=== PATIENT | male | born 1945 ===

== ENCOUNTER 2023-02-20 19:37 | Outpatient (REF) | payer MEDICARE, BC, SELFPAY ==
[2023-02-20 21:59] LABS: HCT 39.9 % (40.0-50.0); HGB 14.2 g/dL (13.5-17.5); MCH 32.8 pg (27.0-33.0); MCHC 35.6 % (32.0-36.0); MCV 92 fL (80-95); MPV 10.6 fL (8.0-11.0); Platelet Count 138 10^3/uL (130-400); RBC 4.33 10^6/uL (4.36-5.78); RDW 12.7 % (11.8-14.1); WBC 6.44 10^3/uL (4.4-10.8)
[2023-02-20 22:16] LABS: ALT 29 U/L (16-63); AST 20 U/L (15-37); Albumin 3.9 g/dL (3.4-5.0); Alkaline Phosphatase 61 U/L (46-116); Anion Gap 7.8 mmol/L (3-11); BUN 18 mg/dL (7-18); Bilirubin, Total 0.8 mg/dL (0.2-1.0); CO2 26.2 mmol/L (21.0-32.0); CREATININE 0.9 mg/dL (0.70-1.30); Calcium 8.7 mg/dL (8.5-10.1); Calculated LDL 86 mg/dL (<100); Chloride 103 mmol/L (98-107); Cholesterol 167 mg/dL (<200); Estimated GFR 88.51 (mL/min/1.73m2); Glucose 96 mg/dL (74-106); HDL Cholesterol 69 mg/dL (40-60); Potassium 3.9 mmol/L (3.5-5.1); Sodium 137 mmol/L (136-145); Total Protein 7.2 g/dL (6.4-8.2); Triglyceride 62 mg/dL (<150)
== END 2023-02-20 19:38 | disposition home or self-care (01) ==
LOC: NCHCN 19:37
PROVIDERS: Visit Provider Internal Medicine
DX: Z00.00 Encounter for general adult medical examination without abnormal findings (principal); Z13.6 Encounter for screening for cardiovascular disorders
CPT/HCPCS: 80053; 80061; 85027

== ENCOUNTER 2024-02-25 15:02 | Outpatient (REF) | payer MEDICARE, BC, SELFPAY ==
--- OUTSIDE RECORDS SUMMARY | 2024-02-25 15:04 | XMS_ITS | Encounter Summary ---
Author Organization [facility] Address [address] [place] [address] Care Team Providers Care Electrician Bus Name Role Phone Unavailable Primary Care Provider Unavailabl e Encounter Details Date Type Department Care Team (Late st Contact Info) Description 12/23/2005 Before PRISM Converted Visit (Maple) [facility] - Maple conversion [address] [place] [address] Bart Mahan MD [address] [facility] [address] [place] [phone] Social History Tobacco Use Types Packs/Day Years Used Date Smoking Tobacco: Never Assessed Sex and Gender Information Value Date Recorded Sex Assigned at Not on file Legal Sex Male 17:44 EST Gender Identity Not on file Sexual Orientation Not on file documented as of this encounter Progress Notes * Bart Mahan MD - 02/03/2009 1350 EST DIVISION OF OTOLARYNGOLOGY December 25, 2005 Devonte Mustafa MD [facility] [address] [place] [address] DOS: 12/23/[address] Mustafa: I had the pleasure of seeing your patient John Wiggins in the Otolaryngology Clinic at [facility] today. This is a 60-year-old gentleman who was kicked in the left side of his face by his horseapproximately five days ago. He was seen in the emergency department on Friday where his abrasions were cleaned up and lacerations were sutured. He had a CT scan of this area which shows a nondisplaced orbital floor fracture. Ophthalmology saw the patient and his eyewas examined. There was apparently a corneal abrasion but no other problems in terms of extraocular movements or gross visual acuity. He does not note any new changes in the appearance of the external nasal skeleton. He has no facial numbness or malocclusion. On examination today there is ecchymosis and abrasions around the left eye and cheek. There is no underlying bony step offs to suggest fracture. He has no trismus. Extraocular movements are intact. Vision is grossly intact. The orbital rim is intact. The remainder of his head and neck exam was unremarkable. It is my impression that John Wiggins has a nondisplaced left orbital floor fracture and facial abrasions. His sutures were removed. He requires no surgery for his nondisplaced orbital floor fracture. He should continue to do well as things heal. I reassured him accordingly. He will keep his facial wounds clean and apply bacitracin twice daily for one week. He will contact my office if he develops any changes with his vision orother concerns. Otherwise, I will see him on an as needed basis inthe future. Thank you for the opportunity to see this patient. Sincerely, Signed by Bart Mahan MD 12/25/2005 09:54 Kael Mahan, Kiya Mahan MD Bart Mahan MD - Steven Mahan MD A - mld Job ID: [id number] Document ID: [id number] cc: Devonte Mustafa MD documented in this encounter Plan of Treatment Not on file documented as of this encounter Visit Diagnoses Not on filedocumented in this encounter
--- OUTSIDE RECORDS SUMMARY | 2024-02-25 15:04 | XMS_ITS | Encounter Summary ---
Author Organization [facility] Address [address] [place] [address] Care Team Providers Care Pbx Operator Name Role Phone Unavailable Primary Care Provider Unavailabl e Encounter Details Date Type Department Care Team (Late st Contact Info) Description 12/18/2005 Office Visit [facility] - Maple conversion [address] [place] [address] Blue Lewis MD Social History Tobacco Use Types Packs/Day Years Used Date Smoking Tobacco: Never Assessed Sex and Gender Information Value Date Recorded Sex Assigned at Not on file Legal Sex Male 17:44 EST Gender Identity Not on file Sexual Orientation Not on file documented as of this encounter Progress Notes * Blue Lewis MD - 04/06/2009 0047 EST Department - Physician Summary Registration Date/Time: 12/18/2005 12:42 Time Seen; upon arrival. Arrived- By ambulance. Historian- patient. HISTORY OF PRESENT ILLNESS Chief Complaint- INJURY TO HEAD and INJURY TO FACE. Location of injuries- head and face. The accident occurred today. The patient sustained a blow. Occurred at work. Pt kicked by horse. The patient complains of moderate pain. The patient sustained a blow to the head and had loss of consciousness. No neck pain. REVIEW OF SYSTEMS The patient sustained skin laceration. No seizure, numbness, hearing loss, loss of vision or chest pain. No weakness, difficulty breathing, bladder dysfunction or fever. Has not recently been ill. PAST HISTORY See nurses notes. No history of heart disease, lung disease, renal disease, hypertension or neurological disease. No history of GI disease or diabetes mellitus. Tetanus immunization status is up-to-date. Appendectomy. Knee surgery. Medications: The patient's medications have been reviewed. Allergies: The patient's allergies have been reviewed. SOCIAL HISTORY Nonsmoker. No alcohol use. Is a local resident. ADDITIONAL NOTES The nursing notes have been reviewed with agreement regarding the chief complaint, HPI, PMH and patient medications and allergies. PHYSICAL EXAM Appearance: C-collar in place. Alert. No acute distress. Vital Signs: Have been reviewed and appear to be correct. Head: Left eyebrow area: 3.0 cm laceration. Eyes: Pupils equal, round and reactive to light. EOM intact. Left upper eyelid: severe swelling. Left lower eyelid: severe swelling. Left periorbital area: tenderness, swelling, deformity (consistentwith a periorbital fracture) and 3.0 cm laceration. No entrapment of extraocular muscles or gaze palsy. ENT: No dental injury. Pharynx normal. Neck: Painless ROM. Non-tender. CVS: Normal heart rate and rhythm. Heart sounds normal. Pulses normal. Respiratory: Breath sounds normal. Chest nontender. Abdomen: Abdomen soft and nontender. No organomegaly. Back: No back tenderness. ROM normal. Skin: Skin intact. Normal skin color and turgor. Skin warm and dry. Extremities: Normal inspection. Pelvis stable. Extremities atraumatic. No lower extremity edema. Neuro: Oriented X 3. Mood/affect normal. Speech normal. No motor deficit. Normal gait. No sensory deficit. Reflexes normal. No recall of incident. LABS, X-RAYS, AND EKG EKG: Rate: 91. Normal P waves. Normal LESLEY. Normal QRS complex. Normal axis. Non- specific ST segment/ T wave abnormalities. The study has been independently viewed by me. The study has been interpreted contemporaneously by me. Artifact present. X-Rays: C-spine series negative. Chest X-ray negative. The X-rays were interpreted bythe radiologist and contemporaneously by me and discussed with the radiologist. CT Head: Facial fracture of the nasal bones and left orbit present. No acute changes. No hemorrhage, no intracranial mass, no midline shift, no hydrocephalus and no atrophy. Head CT performed withoutcontrast. The study was interpreted by the radiologist and contemporaneously by me and discussed with the radiologist. CBC: WBC 7.1. Hgb 15. HCT 43. Platelets 175. Chemistries: Na- 138. K- 4.2. Cl- 99. HCO3-22. Glucose - 173. BUN- 18. Cr- 1.3. PROGRESS AND PROCEDURES E.D. Course: Unasyn 3gm IVPB. . Patient counseled in person regarding the patient's test results and diagnosis. Additional history sought from EMS. Old medical records reviewed. Disposition: Admitted. Condition: good. CLINICAL IMPRESSION Closed head injury with amnesia. Nasal fracture, blow-out fracture left eye (orbital fx left). Deep laceration to left eyebrow. Laceration to left eyelid involving lacrimal passages. (Electronically signed by Blue Lewis M.D. 12/19/2005 8:32) Addenda JOHN Nunez VisitID: [id number] Date: 12/18/2005 12/18/2005 12:51 NSURG RETURNED PAGE signed by Alicia Ivy - 12/18/2005 12:51) 12/18/2005 12:52 ERROR NSURG PAGED signed by Alicia Ivy - 12/18/2005 12:52) 12/18/2005 12:56 NSURG RETURNED PAGE signed by Alicia Ivy - 12/18/2005 12:56) Department - Nursing Summary Registration Date/Time: 12/18/2005 12:42 TRIAGE Initial Assessment Triage time 1350. Acuity: LEVEL 3. BP: 120 / 70. HR: 74. RR: 16 regular. Temp: 36.7 C (oral). O2 saturation: 99% room air. Alert. Ruston Coma Scale: 15 - --1258 Carlos Canales R.N.. Medications None. --1258 Carlos Canales R.N.. Allergies No known drug allergies. --1258 Carlos Canales R.N.. History Chief Complaint: INJURY TO HEAD. This occurred today. Mechanism of injury: a blow by being kicked (?kickedby horse left eye). Pain level now: 4/10. The patient has had a moderate headache. The headache has been associated with nausea, vomiting and photophobia. PAST HX: Negative. SOCIAL HX: Nonsmoker. No alcohol use. Historian: patient. Arrived (FACT). 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 taken to [facility] er ct head and neck were negative. [facility] wasagitated and combative but soon became calmand oriented x3. Left orbital fx noted with significant lac. Amnesic to the event). --1258 Carlos Canales R.N.. Interventions ID band on patient. --1258 Carlos Canales R.N.. NURSING PROGRESS NOTES Progress ( NSURG and ED MD's in with pt. ). --1315 Job Carlson.N. BP: 120 / 69. HR: 71. RR: 20 (regular).O2 saturation: 98% room air. --1327 Salvador Trejo R.N. ( Awaiting CT.). --1327 Salvador Trejo R.N. Patient transported to CT by stretcher with tech. --1345 Salvador Trejo R.N. Patient returned from CT by stretcher with tech. --1345 Salvador Trejo R.N. ( Pt. alert and oriented, able to talk in full sentences. at bedside.). The patient is restingquietly. Patient waiting for CT results. --1407 Guille CarlsonN. ( ENT suturing eye. VS-S. Pt. A&O X3.). --1613 Salvador Trejo RSudhirN. ( JELLY FILTER TENDER IV right arm.). --1628 Salvador Trejo R.N. ( Report called, awaiting floor orders.). --1628 Salvador Trejo R.N. UNASYN 3gm in 30 mL IVPB over 30 minutes.IV patency established. IV site checked: no pain, redness,or swelling. IV flushed thoroughly pre- and post- medication administration. Allergic reaction warning given to patient and family. . --1653 Salvador Trejo R.N. HR: 72. RR: 20 (unlabored). O2 saturation: 98% room air. ( ENT suturing still. ). The patient is resting quietly. --1656 Salvador Trejo R.N. ( JELLY FILTER TENDER IV X2, right wrist and left wrist.). --1657 Salvador Trejo R.N. MORPHINE 2mg diluted with 2 mL slow IVP over 2 minutes. Sedative drug warning given to patient and family. . --1739 Salvador Trejo R.N. Patient reports current pain level as 4/10. --1739 Salvador Trejo R.N. ( CALE. in with pt.). --1740 Salvador Trejo R.N. ( PAin meds with relief. Pt. able to ambulate to BR without difficulty, one contact guard.). --genaro Trejo R.N.. DISPOSITION / DISCHARGE Condition at departure: stable. ( Pain tolerable.). Report was given (Shayne RN). Admitted (B6). --1626 Salvador Trejo R.N. Transported via stretcher by [employer]. Departure time: 18:54. --1853 Salvador Trejo R.N.. Carlos Trejo R.N. Locked/Released at 12/18/2005 18:56 by Salvador Trejo R.N. documented in this encounter Plan of Treatment Not on file documented as of this encounter Visit Diagnoses Not on filedocumented in this encounter
--- OUTSIDE RECORDS SUMMARY | 2024-02-25 15:04 | XMS_ITS | Clinical Summary ---
Author Organization [facility] Address [address] [place] [address] Care Team Providers Care Chainsaw Mechanic Name Role Phone Devonte Mustafa MD Primary Care Provider Unav ailable Allergies No known active allergies Medications latanoprost (XALATAN) 0.005 % ophthalmic solution Place 1 Drop into both eyes at bedtime. Active [id number]- Fish Oil (FISH OIL) 1,000 mg (120 mg-180 mg) capsule Take by mouth. Active Active Problems No known active problems Medical History Medical History Date Comments Basal cell carcinoma (BCC) of skin of neck 01/26 left neck, s/p Mohs Social History Tobacco Use Types Packs/Day Years Used Date Smoking Tobacco: Never Smokeless Tobacco: Never Interpersonal Safety Answer Date Record ed Physically Hurt Never 09/12/2019 Verbally Threaten Not on file 09/12/2019 Sex and Gender Information Value Date Recorded Sex Assigned at Not on file Legal Sex Male 17:44 EST Gender Identity Not on file Sexual Orientation Not on file Obstetrics History Last Filed Vital Signs Vital Sign Reading Time Taken Comments Blood Pressure 117/70 01/26/2018 0749 EST Pulse 58 01/26/2018 0749 EST Temperature 35.7 ??C (96.2 ??F) 01/26/2018 0749 EST Respiratory Rate - - Oxygen Saturation - - Inhaled Oxygen Concentration - - Weight - - Height - - Body Mass Index - - Plan of Treatment Health Maintenance Due Date Last Done Comments Hepatitis C Screen 1945 Fall Risk Screening 06/04/2011 RSV Immunization ( o r 60+ Years) (1 - 1-dose 75+ series) 2021 COVID-19 Vaccine ( season) 2023 Insurance [facility] Address: [address] [place] [address] MEDICARE Care Teams Chainsaw Mechanic Relationship Specialty Start Date End Date Devonte Mustafa MD PCP - General 12/26/14
--- OUTSIDE RECORDS SUMMARY | 2024-02-25 15:04 | XMS_ITS | Encounter Summary ---
Author Organization [facility] Address [address] [place] [id number] Care Team Providers Care Network Programmer Name Role Phone Devonte Mustafa MD Primary Care Provider Unav ailable Reason for Visit * Reason Comments Basal Cell Carcinoma Left neck Encounter Details Date Type Department Care Team (Late st Contact Info) Description 01/26/2018 8:00 EST Office Visit [facility] Dermatology 5th [address] [id number] Yon Gallego MD [address] [facility], Level [address] [place] [id number] Basal cell carcinoma of neck (Primary Dx) Discharge Disposition: Auto Discharge Social History Tobacco Use Types Packs/Day Years Used Date Smoking Tobacco: Never Smokeless Tobacco: Never Sex and Gender Information Value Date Recorded Sex Assigned at Not on file Legal Sex Male 17:44 EST Gender Identity Not on file Sexual Orientation Not on file documented as of this encounter Last Filed Vital Signs Vital Sign Reading Time Taken Comments Blood Pressure 117/70 01/26/2018 0749 EST Pulse 58 01/26/2018 0749 EST Temperature 35.7 ??C (96.2 ??F) 01/26/2018 0749 EST Respiratory Rate - - Oxygen Saturation - - Inhaled Oxygen Concentration - - Weight - - Height - - Body Mass Index - - documented in this encounter Discharge Diagnoses Diagnosis C44.41 Basal cell carcinoma of skin of scalp and neck-C44.41[ICD-10-CM] documented in this encounter Patient Instructions * Patient Instructions* Yon Gallego MD - 01/26/2018 8:00 EST WOUND CARE INSTRUCTIONS FOR SKIN SURGERY The BANDAGE should remain in place for 24 hours. You may shower or bathe after 24 hours; remove thebandage and replace it after the shower (see wound care section below for instructions on how to dothis). DISCOMFORT: Expect some discomfort. Tylenol, taken as directed by the dragger, will help relieve pain. If Tylenol does not provide sufficient relief, you may also take Ibuprofen alternating every four hours with the Tylenol. If the pain is severe and not relieved by the above measures, please c all the office. BLEEDING: You may notice some blood on the edges of the dressing the first day - this is NORMAL. Ifthe bleeding soaks through the dressing, remove the dressing, and apply firm, steady pressure with a moist clean wash cloth for fifteen minutes. If the bleeding stops, redress the wound, if not, callour office at . ACTIVITY: Relax and limit your physical activity for the first 48 hours after surgery. Also, if thesurgery was on the face or scalp, keep your head elevated. Your provider may ask you to limit activity for a longer period of time. APPEARANCE: There may be swelling and bruising around the wound, especially near the eyes. Some redness is normal, but the wound should not be red, hot and tender. If the wound becomes increasingly inflamed, warm, or drains pus, please call our office. WOUND CARE: ?? Wash hands with soap and water before changing the dressing. ?? Change the dressing daily and when it becomes wet. ?? Clean the wound with mild soap and warm water. ?? You may gently loosen any crusts with a cotton swab. ?? The wound may be slightly tender and may bleed a small amount. A small amount of discharge is normal. ?? Apply a thin layer of sterile petroleum jelly over the wound. ?? Cover with Telfa or similar non-stick dressing or bandage. ?? Tape in place with Hypafix or paper tape. ?? It is important to keep the wound covered for 7 days at which point the dressing may be removed and does not need to be reapplied. ?? If there are areas that are not fully healed after 7 days then the dressing should remain in place longer until the skin has healed completely. ?? If your sutures require removal, you will receive specific instructions regarding when and whereto have them removed. Dissolvable sutures generally fall out in 7 to 14 days. If there are suture remnants still present after 7 days you may pull them out with tweezers. CONTACT OUR OFFICE ( or ) IF YOU EXPERIENCE: ?? Increasing redness ?? Wound is warm or hot to touch ?? Increasing pain ?? Drainage with a foul odor ?? Rapid swelling of the wound ?? Fever or chills documented in this encounter Discharge Disposition Disposition Code Departure Means Destination Auto Discharge documented in this encounter Progress Notes * Mia Boyce - 01/26/2018 0800 EST Patient Education Topic: wound care Method: Handout and Verbal Taught to: Patient Barriers: None Outcomes: independent Signature: Mia Boyce Food Preparation Worker, Dermatology 7:49 01/26/2018 * Yon Gallego MD - 01/26/2018 0800 EST MOHS OPERATIVE REPORT Patient Name: John Wiggins Date of Service: January 26, 2018 Surgeon: Yon Gallego MD Technical Support Assistant: Mini Egan PA-C Case #: [id number] AUC Score: 9 Preoperative Diagnosis: Infiltrative basal cell carcinoma Preoperative Procedure: Mohs micrographic surgery Location of Lesion: left postauricular neck Preoperative Lesion Size: 1.7 cm x 1.1 cm Preoperative Procedure: Mohs microscopically-controlled fresh tissue excision Indications: The patient presents with a infiltrative basal cell carcinoma. Because of the histologic and clinical nature of the lesion, as well as its location, the need to achieve the highest cure rate while providing maximum tissue preservation warranted tumor extirpation via microscopically-controlled excision using the Mohs fresh tissue technique. Alternate therapeutic options were discussedon several occasions prior to surgery. After informed consent was obtained and appropriate instruction was provided, the patient underwent tumor extirpation by the Mohs fresh tissue technique as follows: PROCEDURE - INITIAL STAGE: Patient position: supine Anesthesia: 1% lidocaine with epinephrine 1:100,000 local infiltration Prep: Povodine Iodine The patient was brought to the operative suite. The lesion was identified and was prepped in a sterile fashion. The area was infiltrated with lidocaine/epinephrine to achieve complete anesthesia and to augment hemostasis. An initial beveled excision was performed to the fascia with a scalpel blade and tissue scissors as indicated. A hash was created in the specimen and within the adjacent epidermis for marking purposes. The Mohs specimen was excised in a sharp manner, and carefully placed in proper orientation on the surgical tray. Hemostasis of the operative wound was obtained with careful spot electrocoagulation. A sterile non-adherent dressing was applied to the operative wound. The Mohs tissue specimen was carefully transferred to the lab where the tissue was divided, and color inked for orientation by me. These specimens were mapped and then handed personally to the dye penetrant testing technician for frozen sectioning. The tissue was embedded so that the deep and surface margins lay in the same plane, and sections were made through this plane. Once the slide preparation was complete I personally performed histologic evaluation and interpretation of all sections. A summary of my findingsmay be found below. Stage 1 findings: Wound Depth fascia Sections Created 2 Number of Sections Containing Tumor 1 (SUPERFICIAL BASAL CELL CARCINOMA -- Arising from the epidermis and superficial hair follicles are small, superficial, multicentric buds of basaloid keratinocytes with peripheral palisading and cleft artifact.) ADDITIONAL STAGES: The operative site was reidentified and anesthesia was supplemented with further lidocaine/epinephrine as needed. Further beveled incisions of lateral and deep margins were performed with a number 15scalpel blade at all sites where tumor was mapped from the previous stage. Hashes were created in the specimen and within the adjacent epidermis for marking purposes as indicated. The specimens were excised in a sharp manner, and carefully placed in proper orientation on the surgical tray. Hemostasis of the operative wound was obtained with careful spot electrocoagulation. A sterile non-adherent dressing was applied to the operative wound. Stage 2 findings: Wound Depth fascia Sections Created 1 Number of Sections Containing Tumor 0 With the patient clear of microscopic tumor, surgery was considered complete. The wound was repaired with an INTERMEDIATE LINEAR closure as detailed in the separate linear repair procedure note below. Postoperative Wound Size: 2.3 cm x 1.5 cm Final Diagnosis: Infiltrative basal cell carcinoma Final Procedure: Mohs micrographic surgery Blood Loss: Minimal Operative Time: 60 minutes Complications: None Note: None Yon Gallego MD 01/26/2018 11:17 INTERMEDIATE REPAIR PATIENT INFORMATION: John Job Wiggins SURGEON: Yon Gallego MD PERSONNEL ASSOCIATE: Mini Egan PA-C PREOPERATIVE DIAGNOSIS: Defect following microscopically controlled excision of Infiltrative basal cell carcinoma PREOPERATIVE PROCEDURE: Intermediate Linear Closure LOCATION of WOUND: left neck WOUND DIMENSIONS: 2.3 cm x 1.5 cm INDICATIONS: The patient presents with an operative wound following tumor removal. After careful consideration and discussion of all repair options, it was determined that, given the location and nature of the defect, an intermediate linear layered closure offered the best chance for preservation of normal anatomic and functional relationships. Alternate options were discussed and the patient was encouraged to ask questions, which, I believe, were answered appropriately. Informed consent was obtained in writing. After informed consent was obtained and appropriate instruction was provided, the patient underwent operative repair as follows. PROCEDURE: Patient position: supine Anesthesia: 1% lidocaine with epinephrine 1:100,000 local infiltration Prep: Povodine Iodine The Mohs operative defect was identified, and the area was infiltrated with lidocaine/epinephrine to achieve complete anesthesia and to augment hemostasis. The area was prepped in the usual sterile and was draped with sterile drapes. A linear closure was designed with care to place the operative repair within functional and cosmetic lines to minimize the postoperative distortion of normal tissues. The wound edges were prepared using a # 15 scalpel blade to precisely delineate the operative repair and were then undermined with combined blunt and, as needed, sharp dissection taking great care to avoid functionally important vessels and nerves. Undermining was carried out at the level of the superficial fascia Hemostasis of the operative wound was obtained with careful spot electrocoagulation, and ligature as indicated. The wound edges were then approximated using 5.0 Monocryl (poliglecaprone 25) buried interrupted sutures at the level of the subcutis and dermis. The epidermis was then approximated using 6.0 Fast absorbing plain gut. The final wound length was 6.1 cm. FINAL DIAGNOSIS: Defect following microscopically controlled excision FINAL PROCEDURE: Intermediate linear closure BLOOD LOSS: minimal OPERATIVE TIME: 30 minutes COMPLICATIONS: None NOTE: None Yon Gallego MD 01/26/2018 11:21 * Yon Gallego MD - 01/26/2018 0800 EST Images from the original note were not included. MOHS SURGERY POST-OP SUMMARY John Wiggins is a 72 y.o. year old male who underwent Mohs surgery today 01/26/2018. The following is a summary of the operative findings: Lesion 1 Infiltrative basal cell carcinoma Location left neck Size Preop (cm) 1.7 cm x 1.1 cm Size Postop (cm) 2.3 cm x 1.5 cm Stages 2 Depth of Excision fascia Repair intermediate linear repair Mr. Wiggins was discharged from the operative suite in good condition. He was carefully instructed in postoperative wound care both verbally and in writing. All sutures used were absorbable, so the patient does not need to return for suture removal. Return for follow up as needed. Note: None JESSICA Giraldo MD 01/26/2018 11:16 documented in this encounter Plan of Treatment Not on file documented as of this encounter Procedures Procedure Name Priority Date/Time Associated Diagnosis Comments PROCEDURE REPORTS - SCANNED 01/30/2018 13:28 EST documented in this encounter Results * PROCEDURE REPORTS - SCANNED (01/30/2018 13:28 EST) 01/30/2018 13:2 8 EST us Scan 2 Business Account Specialist PROCEDURE/MINOR SURGICAL OR DERABLES Final Result documented in this encounter Visit Diagnoses Diagnosis Basal cell carcinoma of neck- Primary Basal cell carcinoma of scalp and skin of neck documented in this encounter Care Teams Network Programmer Relationship Specialty Start Date End Date Devonte Mustafa MD PCP - General 12/26/14 documented as of this encounter
--- OUTSIDE RECORDS SUMMARY | 2024-02-25 15:04 | XMS_ITS | Encounter Summary ---
Author Organization [facility] Address [address] [place] [address] Care Team Providers Care Moth Exterminator Name Role Phone Devonte Mustafa MD Primary Care Provider Unav ailable Encounter Details Date Type Department Care Team (Late st Contact Info) Description 06/18/2021 Lab Requisition [facility] Pathology & Laboratory Medicine - [address] [address] Jim Ng PA [address] [place] [address], [address] [place] [address] Basal cell carcinoma of skin of right upper limb, including shoulder Social History Tobacco Use Types Packs/Day Years [...] on file documented as of this encounter Plan of Treatment Not on file documented as of this encounter Procedures Procedure Name Priority Date/Time Associated Diagnosis Comments SURGICAL PATHOLOGY Today 06/18/2021 10 :09 EDT Basal cell carcinoma of skin of right upper limb, including shoulder documented in this encounter Results * SURGICAL PATHOLOGY (06/18/2021 10:09 EDT) Note to Patient The following pathology results have been interpreted by your pathologist and may be available to you before your health provider has had the opportunity to review them. Please allow time for your provider to receive these results and explore management options, if applicable. 06/20/2021 11:01 [facility] Final Diagnosis A. SKIN OF SHOULDER, RIGHT POSTERIOR, EXCISION: - Basal cell carcinoma, nodular and infiltrative type. - Margins negative for basal cell carcinoma. - Basal cell carcinoma present approximately 1.5 mm from peripheral margin. - Epidermal reparative change and dermal scar, consistent with biopsy site. 06/20/2021 11:01 [facility] Attestation By the signature below, the attending physician certifies that they have 1) personally conducted a gross and/or microscopic examination of the described specimen(s), and/or personally interpreted the results of laboratory testing of the described specimen(s), and 2) personally rendered or confirmed the above diagnosis. 06/20/2021 11:01 [facility] at 1101 Microscopic Description Emanating from the epidermis and extending into the dermis are irregularly shaped islands and cords of atypical basal cells. Many of the islands are small and angulate. The basal cells have scant cytoplasm and round dark nuclei. Mitotic figures and apoptotic bodies are evident. Some nuclei at the periphery of some of the larger islands have a palisaded arrangement. There is fibroplasia and myxoid change of the stroma with cleft formation between some of the islands and stroma. 06/20/2021 11:01 [facility] Clinical History [place] scar S/P biopsy with residual; DDx: Nodular basal cell carcinoma; Notes: Please check margins; [id number]; clinical diagnosis code: C44.612 06/20/2021 11:01 [facility] Gross Description A. Received in formalin labelled with proper patient identification (initials H, E) and right posterior shoulder is an unoriented ellipse excision of pale carbajal-white wrinkled skin (4.1 x 1.5 cm and is excised to a depth of 0.7 cm). There is a central white flaky focally carbajal crusted scab (0.8 x 0.6 x 0.2 cm). The scab is dislodged upon manipulation. The specimen is received a marking ink covering the edges of the specimen and the cutaneous surface surrounding the scab. The margins are inked blue. The specimen is serially sectioned and entirely submitted as follows: BLOCK ARMENTA A1- two tips, reverse en face A2-A6- central sections A7- the dislodged scab, trisected Carlyle Garrett 06/19/2021 10:57 06/20/2021 11:01 EDT [facility] Performing Lab [facility] 06/20/2021 11:01 EDT [facility] Scanned Images 06/20/2021 11:01 EDT [facility] Tissue TISSUE SPECIMEN FROM SKIN / Unknown 06/18/2021 10:09 EDT 06/18/2021 16:27 EDT us Jim LOPEZ PATHOLOGY ORDERABLES Final Res ult [facility] [address] [place] [address] documented in this encounter Visit Diagnoses Diagnosis Basal cell carcinoma of skin of right upper limb, including shoulder Basal cell carcinoma of skin of upper limb, including shoulder documented in this encounter Care Teams Moth Exterminator Relationship Specialty Start Date End Date Devonte Mustafa MD PCP - General 12/26/14 documented as of this encounter
--- OUTSIDE RECORDS SUMMARY | 2024-02-25 15:04 | XMS_ITS | Encounter Summary ---
Author Organization [facility] Address [address] [place] [address] Care Team Providers Care Media Theorist And Author Of Name Role Phone Devonte Mustafa MD Primary Care Provider Unav ailable Encounter Details Date Type Department Care Team (Latest Contact Info) Description 12/25/2017 14:51 EST - 12/25/2017 23:59 EST Hospital Encounter [address] [address] Arun Mejias, PAYuryC [address] [place] [address] Discharge Disposition: Home or Self Care Social History Tobacco Use Types Packs/Day Years Used Date Smoking Tobacco: Never Assessed Sex and Gender Information Value Date Recorded Sex Assigned at Not on file Legal Sex Male 17:44 EST Gender Identity Not on file Sexual Orientation Not on file documented as of this encounter Discharge Diagnoses Diagnosis D48.5 Neoplasm of uncertain behavior of skin-D48.5[ICD-10-CM] documented in this encounter Discharge Disposition Disposition Code Departure Means Destination Home or Self Care documented in this encounter Plan of Treatment Not on file documented as of this encounter Visit Diagnoses Not on filedocumented in this encounter Care Teams Media Theorist And Author Of Relationship Specialty Start Date End Date Devonte Mustafa MD PCP - General 12/26/14 documented as of this encounter
--- OUTSIDE RECORDS SUMMARY | 2024-02-25 15:04 | XMS_ITS | Referral Summary ---
Author Organization [facility] Address [address] [place] [address] Care Team Providers Care Stone Rigger Name Role Phone Devonte Mustafa MD Primary Care Provider Unav ailable Allergies No known active allergies Medications latanoprost (XALATAN) 0.005 % ophthalmic solution Place 1 Drop into both eyes at bedtime. Active [id number]- Fish Oil (FISH OIL) 1,000 mg (120 mg-180 mg) capsule Take by mouth. Active Active Problems No known active problems Social History Tobacco Use Types Packs/Day Years Used Date Smoking Tobacco: Never Smokeless Tobacco: Never Interpersonal Safety Answer Date Record ed Physically Hurt Never 09/12/2019 Verbally Threaten Not on file 09/12/2019 Sex and Gender Information Value Date Recorded Sex Assigned at Not on file Legal Sex Male 17:44 EST Gender Identity Not on file Sexual Orientation Not on file Last Filed Vital Signs Vital Sign Reading Time Taken Comments Blood Pressure 117/70 01/26/2018 0749 EST Pulse 58 01/26/2018 0749 EST Temperature 35.7 ??C (96.2 ??F) 01/26/2018 0749 EST Respiratory Rate - - Oxygen Saturation - - Inhaled Oxygen Concentration - - Weight - - Height - - Body Mass Index - - Plan of Treatment Not on file Insurance [employer] [place] MEDICARE Care Teams Stone Rigger Relationship Specialty Start Date End Date Devonte Mustafa MD PCP - General 12/26/14
--- OUTSIDE RECORDS SUMMARY | 2024-02-25 15:04 | XMS_ITS | Encounter Summary ---
Author Organization [facility] Address [address] [place] [address] Care Team Providers Care Yolk Spray Drier Name Role Phone Unavailable Primary Care Provider Unavailabl e Encounter Details Date Type Department Care Team (Latest Contact Info) Description 12/18/2005 19:05 EST - 12/19/2005 11:59 EST Hospital Encounter [facility] General Surgery Unit [address], [place] [id number] Flo Kauffman MD PhD Blue Lewis MD Discharge Disposition: Home or Self Care Social History Tobacco Use Types Packs/Day Years Used Date Smoking Tobacco: Never Assessed Sex and Gender Information Value Date Recorded Sex Assigned at Not on file Legal Sex Male 17:44 EST Gender Identity Not on file Sexual Orientation Not on file documented as of this encounter Discharge Disposition Disposition Code Departure Means Destination Home or Self Care documented in this encounter Progress Notes * Alejandro Raman - 12/19/2005 0000 EST INPATIENT PROGRESS NOTE PT LOC: B006 Service Date: 12/19/2005 CHIEF COMPLAINT: Multiple trauma. SUBJECTIVE: This is a 60-year-old male who was kicked in the face by a horse. By report, the patient was amnestic to the event and subsequently presented to an outside emergency room for evaluation. The patient was found to have a complex supraorbital facial laceration as well as a left orbital fracture. In addition, the patient was found to have a traumatic brain injury. The patient was transferred to [facility]for further evaluation where our physicians concurred with this diagnosis. The patient was admitted to the hospital for observation. At this point in time, the patient has no complaints. He states his vision in the left eye has gotten markedly better. He remains amnestic to the event but denies a history of headaches or vomiting. The patient was nauseous this morning, though this was after taking a Percocet. OBJECTIVE: On physical exam, he an obviously traumatized male in no acute distress. His T-max is 37.3. T-current 36.0. Heart rate 60. Blood pressure 94/60. Respiratory rate is 18. Saturation 97% on room air. On physical exam, his head is normocephalic. Examination of the patientleft orbit shows marked ecchymosis around his orbit, although his extraocular movements appear to be grossly intact. Hisvision appears to be 20/20 in both eyes. Examination of the patientsupraorbital laceration shows the suture line to be clean, dry and intact. The patients neck is supple. His trachea is midline. His chest is clear to auscultation bilaterally. His heart has a regular rate and rhythm. His abdomen is soft, nontender and nondistended. Neurologically, his GCS is 15. Cranial nerves II-XII are grossly intact. ASSESSMENT AND PLAN: This is a 60male status post blunt trauma to his left orbit. Plans for this patient include: 1. We will repeat the patients head CT today. 2. We will request a HIMS screening today. 3. Should the patient be able totolerate lunch and his CAT scan and HIMS screening are within normal limits, we will plan to discharge him from [facility] today with appropriate followupwith neurosurgery and the otolaryngology team. Signed by Alejnadro Raman MD 12/19/2005 15:47 Mary Raman [phone] Raman MD Alejandro Raman MD [phone] - Steven Raman MD A - mt Job ID: [id number] Document ID: [id number] cc: documented in this encounter Plan of Treatment Not on file documented as of this encounter Procedures Procedure Name Priority Date/Time Associated Diagnosis Comments CT HEAD WO CONTRAST 12/19/2005 1 0:54 EST PTT Routine 12/19/2005 1:28 EST PROTIME Routine 12/19/2005 1:28 EST COMPLETE BLOOD COUNT AND DIFFERENTIAL Routine 12/19/2005 1:28 EST BUN Routine 12/19/2005 1:28 EST PHOSPHORUS Routine 12/19/2005 1:28 EST MAGNESIUM Routine 12/19/2005 1:28 EST CREATININE Routine 12/19/2005 1:28 EST CALCIUM Routine 12/19/2005 1:28 EST ELECTROLYTES Routine 12/19/2005 1:28 EST URINE CHEMICAL (DIP) & SEDIMENT (MICRO) WITHOUT REFLEX TO CULTURE Routine 12/19/2005 0:[address] FACIAL BONES WO CONTRAST 12/18/2005 13:43 EST documented in this encounter Results * CT HEAD WO CONTRAST (12/19/2005 10:54 EST) Anatomical Region Laterality Modality Other 12/19/2005 10:5 4 EST Narrative 08/20/2008 3:04 EDT HD #2 POST BLOW TO HEAD BY HORSE. TATYANA F/U CT TO EVAL FOR INTRACRANIAL PATHOLOGY. CT OF THE HEAD, 12/19/2005 HISTORY: Hospital Day #2 post-blow to head by horse. ??Follow-up to evaluate for intracranial pathology. TECHNIQUE: Transverse non-contrast CT scans of the brain were performed from the foramen magnum to the vertex. COMPARISONS: CT of the facial bones, 12/18/2005. FINDINGS: fractures of the nasal bones are redemonstrated. ??Left orbital floor fracture with slight inferior displacement is also redemonstrated. ??There is near-complete opacification of the right maxillary sinus. ??Mucosal thickening is present in the left maxillary sinus. ??There is mucosal thickening present in the ethmoid air cells as well. ??The ventricles and extraaxial CSF spaces are age-appropriate. ??No mass effect or midline shift is seen. ??There is no intracranial hemorrhage. IMPRESSION: 1. ?Comminuted nasal bone fracture and blow-out fracture of the left orbital floor, unchanged from yesterday's study. 2. ?Persistent opacification of the right maxillary sinus. 3. ?Mucosal thickening in the left maxillary sinus and ethmoid air cells. 4. ?No intracranial abnormality identified. D: ??12/19/2005 T: ??12/20/2005 /[facility]. I have personally reviewed the images and the above interpretation and agree with the findings. Procedure Note Josette Huang MD / Lobo Valdez MD - 08/20/2008 HD #2 POST BLOW TO HEAD BY HORSE. TATYANA F/U CT TO EVAL FOR INTRACRANIAL PATHOLOGY. CT OF THE HEAD, 12/19/2005 HISTORY: Hospital Day #2 post-blow to head by horse. Follow-up to evaluate for intracranial pathology. TECHNIQUE: Transverse non-contrast CT scans of the brain were performed from the foramen magnum to the vertex. COMPARISONS: CT of the facial bones, 12/18/2005. FINDINGS: fractures of the nasal bones are redemonstrated. Left orbital floor fracture with slight inferior displacement is also redemonstrated. There is near-complete opacification of the right maxillary sinus. Mucosal thickening is present in the left maxillary sinus. There is mucosal thickening present in the ethmoid air cells as well. The ventricles and extraaxial CSF spaces are age-appropriate. No mass effect or midline shift is seen. There is no intracranial hemorrhage. IMPRESSION: 1. Comminuted nasal bone fracture and blow-out fracture of the left orbital floor, unchanged from yesterday's study. 2. Persistent opacification of the right maxillary sinus. 3. Mucosal thickening in the left maxillary sinus and ethmoid air cells. 4. No intracranial abnormality identified. /[facility]. I have personally reviewed the images and the above interpretation and agree with the findings. us Flo Kauffman MD PhD IMG CT ORDERABLES Final Result * PTT (12/19/2005 1:28 EST) PTT 27 20 - 35 secs [facility] Comment: PLEASE NOTE CHANGE IN HEPARIN THERAPEUTIC RANGE EFFECTIVE 12/11/05 Therapeutic Heparin range: ?? 60-100 seconds 12/19/2005 1:28 EST 12/19/2005 1:29 EST Flo Kauffman MD PhD HEMATOLOGY & PF4 O RDERABLES Final Result [facility] [address] [place] [address] * (ABNORMAL) PROTIME (12/19/2005 1:28 EST) Pro Time 15.4(H) 12.0 - 15.0 secs [facility] I.N.R. 1.2(H) 0.9 - 1.1 Ratio [facility] Comment: Moderate Intensity Coumadin INR = 2.0-3.0 Adjustments in anticoagulant therapy dose should be based upon the INR and NOT the Pro Time. 12/19/2005 1:28 EST 12/19/2005 1:29 EST Flo Kauffman MD PhD HEMATOLOGY & PF4 O RDERABLES Final Result [facility] [address] [place] [address] * PHOSPHORUS (12/19/2005 1:28 EST) Phosphorus 3.4 2.5 - 4.5 mg/dl [facility] 12/19/2005 1:28 EST 12/19/2005 1:29 EST us Flo Kauffman MD PhD CHEMISTRY & BLOOD GAS ORDERABLES Final Result Performing Organization Address [facility] de Phone Number [facility] [address] [place] [address] * MAGNESIUM (12/19/2005 1:28 EST) Magnesium 2.1 1.7 - 2.8 mg/dl [facility] 12/19/2005 1:28 EST 12/19/2005 1:29 EST Flo Kauffman MD PhD CHEMISTRY & BLOOD GAS ORDERABLES Final Result Performing Organization Address [facility] de Phone Number [facility] [address] [place] [address] * ELECTROLYTES (12/19/2005 1:28 EST) Sodium 136 136 - 145 mEq/L [facility] Potassium 3.5 3.5 - 5.0 mEq/L [facility] Chloride 100 96 - 110 mEq/L [facility] CO2 30 24 - 32 mEq/L [facility] 12/19/2005 1:28 EST 12/19/2005 1:29 EST Flo Kauffman MD PhD CHEMISTRY & BLOOD GAS ORDERABLES Final Result Performing Organization Address City/[facility] Co de Phone Number [facility] [address] [place] [address] * CREATININE (12/19/2005 1:28 EST) Pathologist [facility] Creatinine 0.97 0.7 - 1.5 mg/dl [facility] GFR, Calculated >60 ml/min/1.7 3m2 [facility] 12/19/2005 1:28 EST 12/19/2005 1:29 EST Flo Kauffman MD PhD CHEMISTRY & BLOOD GAS ORDERABLES Final Result [facility] [address] [place] [address] * (ABNORMAL) HEMAGRAM AND DIFFERENTIAL (12/19/2005 1:28 EST) Pathologist [facility] WBC 10.24 4.0 - 10.4 K/cmm [facility] RBC 3.84(L) 4.36 - 5.78 M/cmm [facility] Hemoglobin 12.7(L) 13.8 - 17.3 gm/dl [facility] HCT 36.2(L) 39.5 - 50.2 % [facility] MCV 94 81 - 95 fl [facility] MCH 33.0 27.6 - 33.0 pg [facility] MCHC 35.0 32.8 - 36.4 gm/dl [facility] PLT 110(L) 141 - 320 K/cmm [facility] RDW-CV 13.9 11.8 - 14.1 % [facility] % Neutrophils 87.4(H) 45.5 - 79.7 % [facility] % Lymphocytes 8.8(L) 15.0 - 46.8 % [facility] % Monocytes 3.1 1.8 - 12.0 % [facility] % Eosinophils 0.4(L) 0.6 - 6.9 % [facility] % Basophils 0.3 0.2 - 1.4 % [facility] ABS Neutrophils 8.95(H) 2.20 - 8.85 K/cmm [facility] ABS Lymphs 0.90(L) 1.09 - 3.30 K/cmm [facility] ABS Monocytes 0.32 0.1 - 0.8 K/cmm [facility] ABS Eosinophils 0.04 0.03 - 0.61 K/cmm [facility] ABS Basophils 0.03 0.01 - 0.11 K/cmm [facility] Type of Diff: Automated [facility] 12/19/2005 1:28 EST 12/19/2005 1:29 EST Flo Kauffman MD PhD PACKAGES & DNA PRO BE ORDERABLES Final Result Performing Organization Address City/[facility] Co de Phone Number [facility] [address] [place] [address] * CALCIUM (12/19/2005 1:28 EST) Calcium 8.7 8.5 - 10.5 mg/dl [facility] Calculated Calcium 9.8 8.5 - 10.5 mg/dl [facility] 12/19/2005 1:28 EST 12/19/2005 1:29 EST Flo Kauffman MD PhD CHEMISTRY & BLOOD GAS ORDERABLES Final Result Performing Organization Address [facility] de Phone Number [facility] [address] [place] [address] * BUN (12/19/2005 1:28 EST) BUN 13 10 - 26 mg/dl [facility] 12/19/2005 1:28 EST 12/19/2005 1:29 EST Flo Kauffman MD PhD CHEMISTRY & BLOOD GAS ORDERABLES Final Result Performing Organization Address [facility] de Phone Number [facility] [address] [place] [address] * UA WITH MICROSCOPIC (12/19/2005 0:40 EST) Color, UA Yellow [facility] Clarity, UA Clear [facility] Glucose, UA Norm NORM [facility] Bilirubin, UA Neg NEG [facility] Ketones, UA Neg NEG [facility] Specific Fertile, Urine 1.020 1.005 - 1.02 [facility] Blood, UA Neg NEG [facility] pH, UA 5.5 5.0 - 9.0 [facility] Protein, UA Neg NEG [facility] Urobilinogen, UA Norm NORM mg/dL [facility] Nitrite, UA Neg NEG [facility] Leuk Esterase Neg NEG [facility] WBC, UA 1 to 5 0 - 5 /HPF [facility] RBC, UA None seen 0 - 5 /HPF [facility] Squam Epithel, UA None seen NS /HPF [facility] Renal Epithel, UA None seen NS /HPF [facility] Bacteria, UA None seen NS /HPF [facility] Crystals, UA None seen /HPF [facility] Hyaline Casts, UA None seen Rare Hyaline /LPF [facility] UA Comment Microscopic results are unreliable on urines unrefrig >2hrs or refrig >8hrs. [facility] Mucus, UA Present [facility] 12/19/2005 0:40 EST 12/19/2005 7:43 EST Flo Kauffman MD PhD URINALYSIS ORDERAB LES Final Result Performing Organization Address City/State/[facility] Co de Phone Number [facility] [address] [place] [address] * CT FACIAL BONES WO CONTRAST (12/18/2005 13:43 EST) Anatomical Region Laterality Modality Other 12/18/2005 13:4 3 EST Narrative 08/20/2008 3:03 EDT HX HORSE VS FACE R/O FRACTURES CT OF THE FACIAL BONES 12/18/05 1338 IMPRESSION: 1. Comminuted fracture of the right and left nasal bones with deformity of the nose. 2. Blow-out fracture of the floor of the left orbit. 3. Complete opacification of the right maxillary sinus. 4. Mucosal thickening in the left maxillary sinus. CLINICAL HISTORY: Horse versus face. ??Evaluate for fractures. TECHNIQUE: Transverse non-contrast images of the facial bones were performed from the mandible through the frontal sinus with coronal and sagittal oblique reformations. FINDINGS: Comminuted fractures are seen in the right and left nasal bones. The right maxillary sinus is completely opacified. ??Mucosal thickening is identified in the left maxillary sinus. ??Fracture is seen through the floor of the left orbit. ??The fracture is displaced slightly inferiorly. ??The rectus muscles remain within the orbit although the inferior rectus muscle is slightly displaced inferiorly. No other abnormalities are noted. D: ??12/18/05 T: ??12/18/05 /[facility] Procedure Note Laura Orta MD - 08/20/2008 HX HORSE VS FACE R/O FRACTURES CT OF THE FACIAL BONES 12/18/05 1338 IMPRESSION: 1. Comminuted fracture of the right and left nasal bones with deformity of the nose. 2. Blow-out fracture of the floor of the left orbit. 3. Complete opacification of the right maxillary sinus. 4. Mucosal thickening in the left maxillary sinus. CLINICAL HISTORY: Horse versus face. Evaluate for fractures. TECHNIQUE: Transverse non-contrast images of the facial bones were performed from the mandible through the frontal sinus with coronal and sagittal oblique reformations. FINDINGS: Comminuted fractures are seen in the right and left nasal bones. The right maxillary sinus is completely opacified. Mucosal thickening is identified in the left maxillary sinus. Fracture is seen through the floor of the left orbit. The fracture is displaced slightly inferiorly. The rectus muscles remain within the orbit although the inferior rectus muscle is slightly displaced inferiorly. No other abnormalities are noted. jv Flo Kauffman MD PhD IMG CT ORDERABLES Final Result documented in this encounter Visit Diagnoses Not on filedocumented in this encounter
--- OUTSIDE RECORDS SUMMARY | 2024-02-25 15:04 | XMS_ITS | Encounter Summary ---
Author Organization [facility] Address [address] [place] [address] Care Team Providers Care District Plant Superintendent Name Role Phone Unavailable Primary Care Provider Unavailabl e Encounter Details Date Type Department Care Team (Late st Contact Info) Description 12/23/2005 13:15 EST [place] [facility] [address] [place] [address] Bart Mahan MD [address] [place] [address], [address] [place] [id number] Social History Tobacco Use Types Packs/Day Years [...]
--- OUTSIDE RECORDS SUMMARY | 2024-02-25 15:04 | XMS_ITS | Encounter Summary ---
Author Organization [facility] Address [address] [place] [address] Care Team Providers Care Bun Icer Name Role Phone Devonte Mustafa MD Primary Care Provider Unav ailable Encounter Details Date Type Department Care Team (Late st Contact Info) Description 05/16/2022 Lab Requisition [facility] Pathology & Laboratory Medicine - [address] [address] Jim Ng PA [address] [place] [address], [address] [place] [address] Neoplasm of uncertain behavior of skin Social History Tobacco Use Types Packs/Day Years [...] Date/Time Associated Diagnosis Comments SURGICAL PATHOLOGY Today 05/15/2022 13 :25 EDT Neoplasm of uncertain behavior of skin documented in this encounter Results * SURGICAL PATHOLOGY (05/15/2022 13:25 EDT) Note to Patient The following pathology results have been interpreted by your pathologist and may be available to you before your health provider has had the opportunity to review them. Please allow time for your provider to receive these results and explore management options, if applicable. 05/17/2022 9:30 [facility] Final Diagnosis A. SKIN OF SCALP, RIGHT MEDIAL FRONTAL, SHAVE BIOPSY: - Basal cell carcinoma, nodular and infiltrative type. - Basal cell carcinoma present at deep tissue edge. 05/17/2022 9:30 [facility] Attestation By the signature below, the attending physician certifies that they have 1) personally conducted a gross and/or microscopic examination of the described specimen(s), and/or personally interpreted the results of laboratory testing of the described specimen(s), and 2) personally rendered or confirmed the above diagnosis. 05/17/2022 9:30 [facility] at 0930 Microscopic Description Emanating from the epidermis and [...] between some of the islands and stroma. 05/17/2022 9:30 [facility] Clinical History 6 mm pink papule with central excoriation; DDx: Squamous cell carcinoma vs. HAK; clinical diagnosis code: D48.5 05/17/2022 9:30 [facility] Gross Description A. Received in formalin labelled with proper patient identification (initials H, E) and right medial frontal scalp is a 0.8 x 0.7 x 0.1 cm ovoid shave of crusted carbajal-harrison skin. The margin is inked. The specimen is bisected and entirely submitted in A1. JESSICA FRENCH(ASCP) 05/16/2022 13:35 05/17/2022 9:30 [facility] Performing Lab [facility] 05/17/2022 9:30 [facility] Scanned Images 05/17/2022 9:30 [facility] Tissue TISSUE SPECIMEN FROM SKIN / Unknown 05/15/2022 13:25 EDT 05/16/2022 12:44 EDT us Jim LOPEZ PATHOLOGY ORDERABLES Final Res ult [facility] [address] [place] [address] documented in this encounter Visit Diagnoses Diagnosis Neoplasm of uncertain behavior of skin documented in this encounter Care Teams Bun Icer Relationship Specialty Start Date End Date Devonte Mustafa MD PCP - General 12/26/14 documented as of this encounter
--- OUTSIDE RECORDS SUMMARY | 2024-02-25 15:04 | XMS_ITS | Encounter Summary ---
Author Organization [facility] Address [address] [place] [address] Care Team Providers Care Modeling Agency Manager Name Role Phone Sav Martinez MD Primary Care Provider Unav ailable Encounter Details Date Type Department Care Team (Late st Contact Info) Description 12/25/2017 Results Only [facility] [phone] Deborah Mejias, PAYuryC [address] [place] [address] Social History Tobacco Use Types Packs/Day Years [...] Priority Date/Time Associated Diagnosis Comments SURGICAL PATHOLOGY Routine 12/25/2017 14 :21 EST documented in this encounter Results * SURGICAL PATHOLOGY (12/25/2017 14:21 EST) Pathology Report: SURGICAL PATHOLOGY REPORT Reports generated via electronic interface contain original data; however they are lacking the format of the original report. Caution should be taken when reading/interpret ing unformatted reports. Name: ? JOHN WIGGINS ? Accession #: ? [id number] ? : ? 1945 (Age: 72) ??M ? Collect Date: ? 12/25/2017 ? Location: ? [facility] ? Receive Date: ? 12/26/2017 ? Provider: DEBORAH MEJIAS PA-C Copy to: SAV MARTINEZ MD ? Final Pathologic Diagnosis: SKIN OF NECK, LEFT SUPERIOR LATERAL, PUNCH BIOPSY: - Basal cell carcinoma, nodular and infiltrative type. - Basal cell carcinoma present at peripheral and deep tissue edges. Microscopic Description: Emanating from the epidermis and extending into the dermis are irregularly shaped islands and cords of atypical basal cells. ??Many of the islands are small and angulate. ??The basal cells have scant cytoplasm and round dark nuclei. Mitotic figures and apoptotic bodies are evident. ??Some nuclei at the periphery of some of the larger islands have a palisaded arrangement. ??There is fibroplasia and myxoid change of the stroma with cleft formation between some of the islands and stroma. ??(Dr. Anderson)/jds Document reviewed and electronically signed by: JED ANDERSON MD Report ??Date: 12/29/2017 16:01 By the signature above, the attending physician certifies that he/she has personally conducted a gross and/or microscopic examination of the described specimens and rendered or confirmed the above diagnosis. Specimen(s) Received: Left superior lateral neck punch biopsy Clinical History: Hyperkeratotic papule; DDx: Rule out squamous cell carcinoma vs basal cell carcinoma vs other; clinical diagnosis code: ??D48.5 Gross Description: ? Received in formalin labelled with proper patient identification (initials H, E) and left superior lateral is a punch biopsy of carbajal-white skin (0.3 cm in diameter and 0.3 cm in thickness). Submitted intact in 1. Chela Andrade 12/26/2017 2:31 PM End of Report [facility] 12/25/2017 14:2 1 EST 12/26/2017 14:21 EST us Deborah Mejias PA-C PATHOLOGY ORDERABLES Polly erazo Result [facility] [address] [place] [address] documented in this encounter Visit Diagnoses Not on filedocumented in this encounter Care Teams Modeling Agency Manager Relationship Specialty Start Date End Date Sav Martinez MD PCP - General 12/26/14 documented as of this encounter
--- OUTSIDE RECORDS SUMMARY | 2024-02-25 15:04 | XMS_ITS | Encounter Summary ---
Author Organization [facility] Address [address] [place] [address] Care Team Providers Care Room Service Bellhop Name Role Phone Devonte Mustafa MD Primary Care Provider Unav ailable Encounter Details Date Type Department Care Team (Late st Contact Info) Description 05/10/2021 Lab Requisition [facility] Pathology & Laboratory Medicine - [facility] [address] [place] [address] Marj Whitt PA-C DDWL - Four [facility] Dermatology [address] [place] [address] DR,[facility] [address] [place] [address] Neoplasm of uncertain behavior of skin Social [...] Date/Time Associated Diagnosis Comments SURGICAL PATHOLOGY Today 05/09/2021 10 :26 EDT Neoplasm of uncertain behavior of skin documented in this encounter Results * SURGICAL PATHOLOGY (05/09/2021 10:26 EDT) Note to Patient The following pathology results have been interpreted by your pathologist and may be available to you before your health provider has had the opportunity to review them. Please allow time for your provider to receive these results and explore management options, if applicable. 05/10/2021 15:14 [facility] Final Diagnosis A. SKIN OF SHOULDER, RIGHT POSTERIOR, SHAVE BIOPSY: - Basal cell carcinoma, nodular type with infiltrative features, involving the biopsy base. 05/10/2021 15:14 [facility] Attestation By the signature below, the attending physician certifies that they have 1) personally conducted a gross and/or microscopic examination of the described specimen(s), and/or personally interpreted the results of laboratory testing of the described specimen(s), and 2) personally rendered or confirmed the above diagnosis. 05/10/2021 15:14 [facility] at 1514 Clinical History Pearly telangiectatic papule; DDx: Basal cell carcinoma vs other; clinical diagnosis code: D48.5 05/10/2021 15:14 [facility] Gross Description A. Received in formalin labelled with proper patient identification (initials H, E) and ? right posterior shoulder? is a rubbery carbajal-harrison ovoid skin shave, 0.8 x 0.7 x 0.15 cm. The margin is inked. Trisected and entirely submitted in A1. JESSICA ARELLANO(ASCP) 05/10/2021 8:28 05/10/2021 15:14 [facility] Performing Lab [facility] 05/10/2021 15:14 [facility] Scanned Images 05/10/2021 15:14 [facility] Tissue TISSUE SPECIMEN FROM SKIN / Unknown 05/09/2021 10:26 EDT 05/10/2021 8:14 EDT us Marj Whitt PA-C PATHOLOGY ORDERABLES Final Result [facility] [address] [place] [address] documented in this encounter Visit Diagnoses Diagnosis Neoplasm of uncertain behavior of skin documented in this encounter Care Teams Room Service Bellhop Relationship Specialty Start Date End Date Devonte Mustafa MD PCP - General 12/26/14 documented as of this encounter
--- OUTSIDE RECORDS SUMMARY | 2024-02-25 15:04 | XMS_ITS | Encounter Summary ---
Author Organization [facility] Address [address] [place] [address] Care Team Providers Care Offal Separator Name Role Phone Devonte Mustafa MD Primary Care Provider Unav ailable Encounter Details Date Type Department Care Team (Late st Contact Info) Description 04/25/2020 Lab Requisition [facility] Pathology & Laboratory Medicine - [facility] [address] [place] [address] Marj Whitt PA-C DDWL - Four [facility] Dermatology [address] [place] [address] DR,[facility] [address] [place] [address] Neoplasm of uncertain behavior of [...] Date/Time Associated Diagnosis Comments SURGICAL PATHOLOGY Today 04/25/2020 11 :25 EDT Neoplasm of uncertain behavior of skin documented in this encounter Results * SURGICAL PATHOLOGY (04/25/2020 11:25 EDT) Final Diagnosis A. SKIN OF CHEST, RIGHT MEDIAL INFERIOR, SHAVE BIOPSY: - Basal cell carcinoma, nodular type. - Lesion does not extend to biopsy edges were sections appear complete. - Lesion measures approximately 0.2 mm to the biopsy base. - Lesion measures approximately 0.8 mm to the nearest peripheral edge. 04/26/2020 9:21 [facility] Attestation By the signature below, the attending physician certifies that they have 1) personally conducted a gross and/or microscopic examination of the described specimen(s), and/or personally interpreted the results of laboratory testing of the described specimen(s), and 2) personally rendered or confirmed the above diagnosis. 04/26/2020 9:21 [facility] at 0921 Clinical History Pearly telangiectatic papule; DDx: Basal cell carcinoma vs other; Notes: DG if not out with bx; clinical diagnosis code: D48.5 04/26/2020 9:21 [facility] Gross Description A. Received in formalin labelled with proper patient identification (initials H, E) and right medial inferior chest is a shave biopsy of a stellate pearly pink macule (0.5 x 0.5 x 0.2 cm). The specimen is inked, bisected and submitted in A1. JESSICA PARK(ASCP) 04/25/2020 14:58 04/26/2020 9:21 [facility] Performing Lab [facility] 04/26/2020 9:21 [facility] Scanned Images 04/26/2020 9:21 [facility] Tissue TISSUE SPECIMEN FROM SKIN / Unknown 04/25/2020 11:25 EDT 04/25/2020 14:38 EDT us Marj Whitt PA-C PATHOLOGY ORDERABLES Final Result [facility] [address] [place] [address] documented in this encounter Visit Diagnoses Diagnosis Neoplasm of uncertain behavior of skin documented in this encounter Care Teams Offal Separator Relationship Specialty Start Date End Date Devonte Mustafa MD PCP - General 12/26/14 documented as of this encounter
--- OUTSIDE RECORDS SUMMARY | 2024-02-25 15:04 | XMS_ITS | Encounter Summary ---
Author Organization [facility] Address [address] [place] [address] Care Team Providers Care J2Ee Engineer Name Role Phone Devonte Mustafa MD Primary Care Provider Unav ailable Encounter Details Date Type Department Care Team (Latest Contact Info) Description 05/22/2017 14:51 EDT - 05/22/2017 14:53 EDT Hospital Encounter [place] [id number] [place] [address] Marj Whitt PA-C DDW - Four [facility] Dermatology [address] [place] [address] [address] [place] [phone] Discharge Disposition: Home or Self Care Social [...] on filedocumented in this encounter Care Teams J2Ee Engineer Relationship Specialty Start Date End Date Devonte Mustafa MD PCP - General 12/26/14 documented as of this encounter
--- OUTSIDE RECORDS SUMMARY | 2024-02-25 15:04 | XMS_ITS | Encounter Summary ---
Author Organization [facility] Address [address] [place] [address] Care Team Providers Care Solar Energy Systems Engineer Name Role Phone Sav Martinez MD Primary Care Provider Unav ailable Encounter Details Date Type Department Care Team (Late st Contact Info) Description 05/22/2017 Results Only [facility] [phone] Marj Whitt PA-C DDWL - Four [facility] [address] [place] [address] Social History Tobacco Use Types Packs/Day Years [...] Date/Time Associated Diagnosis Comments SURGICAL PATHOLOGY Routine 05/22/2017 14 :14 EDT documented in this encounter Results * SURGICAL PATHOLOGY (05/22/2017 14:14 EDT) Pathology Report: SURGICAL PATHOLOGY REPORT Reports generated via electronic interface contain original data; however they are lacking the format of the original report. Caution should be taken when reading/interpret ing unformatted reports. Name: ? JOHN WIGGINS ? Accession #: ? [id number] ? : ? 1945 (Age: 71) ??M ? Collect Date: ? 05/22/2017 ? Location: ? DDWL ? Receive Date: ? 05/22/2017 ? Provider: MARJ WHITT PA-C Copy to: SAV MARTINEZ MD ? Final Pathologic Diagnosis: SKIN OF FOREARM, RIGHT VENTRAL PROXIMAL, PUNCH BIOPSY: - Basal cell carcinoma, superficial multicentric type. See comment. - Lesion extends to peripheral edge of biopsy specimen. Comment: Deeper levels have been examined. ??(Dr. Santos)/[facility] Document reviewed and electronically signed by: EVONNE SANTOS MD Report ??Date: 05/26/2017 08:20 By the signature above, the attending physician certifies that he/she has personally conducted a gross and/or microscopic examination of the described specimens and rendered or confirmed the above diagnosis. Specimen(s) Received: Right ventral proximal forearm punch biopsy Clinical History: Irregular pink patch; DDx: Superficial basal cell carcinoma vs actinic keratosis vs SCLE vs amelanotic MM vs other; clinical diagnosis code: ??D48.5 Gross Description: ? Received in formalin labelled with proper patient identification (initials H, E) and right ventral proximal forearm is a punch biopsy of carbajal-white skin (0.2 cm in diameter and 0.2 cm in thickness). Submitted intact in 1. JESSICA Mast (ASCP) 05/22/2017 2:33 PM End of Report [facility] 05/22/2017 14:1 4 EDT 05/22/2017 14:14 EDT us Marj Whitt PA-C PATHOLOGY ORDERABLES Final Result [facility] [address] [place] [address] documented in this encounter Visit Diagnoses Not on filedocumented in this encounter Care Teams Solar Energy Systems Engineer Relationship Specialty Start Date End Date Sav Martinez MD PCP - General 12/26/14 documented as of this encounter
--- OUTSIDE RECORDS SUMMARY | 2024-02-25 15:04 | XMS_ITS | Encounter Summary ---
Author Organization [facility] Address [address] [place] [address] Care Team Providers Care Pole Tester Name Role Phone Devonte Mustafa MD Primary Care Provider Unav ailable Encounter Details Date Type Department Care Team (Late st Contact Info) Description 02/18/2019 Lab Requisition [facility] Pathology & Laboratory Medicine - [address] [address] Jim Ng PA [address] [place] [address], [address] [place] [address] Basal cell carcinoma of skin of left upper limb, including shoulder Social History Tobacco [...] Date/Time Associated Diagnosis Comments SURGICAL PATHOLOGY Today 02/18/2019 13 :59 EST Basal cell carcinoma of skin of left upper limb, including shoulder documented in this encounter Results * SURGICAL PATHOLOGY (02/18/2019 13:59 EST) Final Diagnosis A. SKIN OF ARM, LEFT DISTAL POSTERIOR UPPER, EXCISION: - Scar and biopsy site change; no residual tumor. 02/22/2019 10:30 EST [facility] at 1030 Clinical History Morphology: Appropriate healing biopsy site with residual carcinoma noted DDX: Infiltrative basal cell carcinoma Notes: Please check margins 02/22/2019 10:30 [facility] Attestation By the signature below, the attending physician certifies that they have personally conducted a gross and/or microscopic examination of the described specimens and rendered or confirmed the above diagnosis. 02/22/2019 10:30 [facility] at 1030 Gross Description A. Received in formalin labelled with proper patient identification (initials H, E) and left distal posterior upper... Is an unoriented elliptical skin excision (3.1 x 1.5 cm and is excised to the depth of 0.3 cm). There is a central ill-defined, scaly scar (0.7 x 0.6 cm). The surgical margin is inked blue. The specimen is serially sectioned and submitted entirely as tips, reverse en face, in A1 and central sections in A2-A3. Yadira Day 02/19/2019 07:49 02/22/2019 10:30 [facility] Scanned Images 02/22/2019 10:30 [facility] Tissue TISSUE SPECIMEN FROM SKIN / Unknown 02/18/2019 13:59 EST 02/18/2019 19:20 EST us Jim LOPEZ PATHOLOGY ORDERABLES Final Res ult [facility] [address] [place] [address] documented in this encounter Visit Diagnoses Diagnosis Basal cell carcinoma of skin of left upper limb, including shoulder Basal cell carcinoma of skin of upper limb, including shoulder documented in this encounter Care Teams Pole Tester Relationship Specialty Start Date End Date Devonte Mustafa MD PCP - General 12/26/14 documented as of this encounter
--- OUTSIDE RECORDS SUMMARY | 2024-02-25 15:04 | XMS_ITS | Encounter Summary ---
Author Organization [facility] Address [address] [place] [address] Care Team Providers Care Loom Doffer Name Role Phone Devonte Mustafa MD Primary Care Provider Unav ailable Reason for Visit * Reason Comments Basal Cell Carcinoma Left neck. Patient has had h/o BCCs. * Consult (Routine) - Closed Specialty Diagnoses / Procedures Referred By Irma t Referred To Contact Dermatology Diagnoses Basal cell carcinoma of skin, unspecified Arun Mejias, CASANDRA Phone: tel: fax: [facility] D[facility]at[facility] [address] [address] Phone: tel: fax: Referral ID Status Reason Start Date Expiration Date Visits Re quested Visits Authorized [id number] Closed 1 1 Encounter Details Date Type Department Care Team (Late st Contact Info) Description 01/09/2018 11:15 EST Office Visit [facility] Dermatology [address] [id number] Yon Gallego MD [address] [place] [address], [facility] [address] [place] [phone] Basal cell carcinoma of neck (Primary Dx) Discharge Disposition: Auto Discharge Social History Tobacco Use Types Packs/Day Years Used Date Smoking Tobacco: Never Smokeless Tobacco: Never Sex and Gender Information Value Date Recorded Sex Assigned at Not on file Legal Sex Male 17:44 EST Gender Identity Not on file Sexual Orientation Not on file documented as of this encounter Discharge Diagnoses Diagnosis C44.41 Basal cell carcinoma of skin of scalp and neck-C44.41[ICD-10-CM] documented in this encounter Discharge Disposition Disposition Code Departure Means Destination Auto Discharge documented in this encounter Progress Notes * Mia Boyce - 01/09/2018 1115 EST Review of Systems Constitutional: Negative for fatigue, fever and unexpected weight change. HENT: Negative for mouth sores. Eyes: Negative for pain. Respiratory: Negative for cough and shortness of breath. Cardiovascular: Negative for chest pain and palpitations. Gastrointestinal: Negative for abdominal pain, blood in stool, constipation, diarrhea, nausea and vomiting. Genitourinary: Negative for dysuria, frequency and hematuria. Musculoskeletal: Negative for myalgias, joint swelling, arthralgias and muscle stiffness in the morning. Skin: Negative for rash. Neurological: Negative for numbness and headaches. Endo/Heme/Allergies: Does not bruise/bleed easily. Psychiatric/Behavioral: Negative for sleep disturbance. The patient is not nervous/anxious. Mia Boyce [employer]ader, Dermatology 11:02 01/09/2018 * Yon Gallego MD - 01/09/2018 1115 EST MOHS EVALUATION NOTE Chief Complaint Patient presents with ??? Basal Cell Carcinoma Left neck. Patient has had h/o BCCs. Subjective: John Wiggins is a 72 y.o. year old male who is referred to me for evaluation and treatment of ainfiltrative basal cell carcinoma of the left lateral neck by Arun Mejias PA-C. The patient isreferred to consider Mohs surgery versus other treatment options. The patient notes that this lesion has been present for a few months, and reports no symptoms. The patient???s risk factors for skin c ancer include history of basal cell carcinoma. Risk factors: Pacemaker/ICD: None Anticoagulants: Ibuprofen PRN Total joint replacements/valves: None Allergies: Patient has No Known Allergies. Immunosuppression: None Non smoker For full Medical, Surgical, Family, and Social histories as well as Review of Systems, Medications and Allergies please see those sections of this encounter in the electronic chart which I have personally reviewed. Objective: The patient is a alert, healthy and not in distress appearing 72 y.o.-year-old male sitting on the examination table. Examination revealed a 1.3 cm x 0.9 cm imbedded, pearly and pink, papule located on the left and lateral neck. Pathology: SKIN OF NECK, LEFT SUPERIOR LATERAL, PUNCH BIOPSY: - Basal cell carcinoma, nodular and infiltrative type. ??- Basal cell carcinoma present at peripheral and deep tissue edges. Assessment & Plan: Infiltrative basal cell carcinoma of the left neck ?? Mr. Wiggins and I discussed the meaning of the diagnosis of skin cancer and the options for treatment including curettage and electrodesiccation, radiation therapy, conventional excision, and excision by Mohs micrographic surgery. Due to the need for a high cure rate and optimum functional and aesthetic outcome, I feel that Mohs surgery is indicated. Patient's Mohs Appropriate Use Criteria (AUC) score (0-9) is: 9. The risks of Mohs surgery and potential reconstructive surgery, including but not limited to, bleeding, scarring, infection, recurrence, injury to functionally or cosmetically important nerve structures and an unsatisfactory cosmetic result were reviewed. The patient was given an opportunity to ask questions, and I believe that all of his questions were answered satisfactorily. In addition the patient was provided with written material that describes the Mohs procedure and related matters. Mr. Wiggins understands that following Mohs surgery an operative repair may be required and may involve substantial suturing. We have jointly planned to have me repair the wound at the day of surgery if needed. He understands that following reconstruction, if performed, many months may elapse before a decision can be made about the final cosmetic result, and that, in some cases a revision may be necessary to optimize the outcome. I explained to Mr. Wiggins that in addition to the risk of recurrence from his skin cancer he has an increased risk of developing additional new skincancers elsewhere. For that reason, follow up for ongoing skin surveillance examinations, after surgery, will be imperative. The patient has been scheduled to undergo surgery within the next month. Note: None Yon Gallego MD 01/09/2018 11:15 documented in this encounter Plan of Treatment Not on file documented as of this encounter Visit Diagnoses Diagnosis Basal cell carcinoma of neck- Primary Basal cell carcinoma of scalp and skin of neck documented in this encounter Historical Medications * This list may reflect changes made after this encounter. [id number] sh Oil (FISH OIL) 1,000 mg (120 mg-180 mg) capsule Take by mouth. latanoprost (XALATAN) 0.005 % ophthalmic solution Place 1 Drop into both eyes at bedtime. added in this encounter Care Teams Loom Doffer Relationship Specialty Start Date End Date Devonte Mustafa MD PCP - General 12/26/14 documented as of this encounter
[2024-02-25 20:59] LABS: HCT 43.9 % (40.0-50.0); HGB 15.3 g/dL (13.5-17.5); MCHC 34.9 % (32.0-36.0); MCV 95 fL (80-95); MPV 10.8 fL (8.0-11.0); Platelet Count 158 10^3/uL (130-400); RBC 4.64 10^6/uL (4.36-5.78); RDW 12.8 % (11.8-14.1); RDW-SD 44.1 fL; WBC 6.16 10^3/uL (4.4-10.8)
[2024-02-26 19:02] LABS: PSA, Screening 1.7 ng/mL (<=6.5)
== END 2024-02-25 15:03 | disposition home or self-care (01) ==
LOC: NCHCN 15:02
PROVIDERS: Visit Provider Internal Medicine
DX: D64.9 Anemia, unspecified (principal); Z12.5 Encounter for screening for malignant neoplasm of prostate
CPT/HCPCS: 84153; 85027

== ENCOUNTER 2024-07-06 15:42 | Outpatient (REF) | payer MEDICARE, BC, SELFPAY ==
[2024-07-06 22:13] LABS: HCT 38.1 % (40.0-50.0); HGB 13.9 g/dL (13.5-17.5); MCH 33.7 pg (27.0-33.0); MCHC 36.5 % (32.0-36.0); MCV 92 fL (80-95); MPV 10.9 fL (8.0-11.0); Platelet Count 137 10^3/uL (130-400); RBC 4.13 10^6/uL (4.36-5.78); RDW-SD 44.3 fL; Reticulocyte 1.1 % (0.5-2.4); WBC 5.68 10^3/uL (4.4-10.8)
[2024-07-06 22:24] LABS: Iron 121 ug/dL (65-175); Total Iron Binding Capacity 248 ug/dL (250-450); Transferrin Sat 49 % (20-55)
[2024-07-06 23:08] LABS: Folate 18.2 ng/mL (8.6-20.0); TSH (W/Ref FT4) 2.24 uIU/mL (0.36-3.74); Vitamin B12 217 pg/mL (193-986)
[2024-07-07 15:50] LABS: Ferritin 119 ng/mL (26-388)
[2024-07-07 19:27] LABS: HIV-1/2 Ag & Ab Screen Negative (Negative)
[2024-07-07 19:34] LABS: Hepatitis C Ab w Rflx HCV PCR Negative (Negative)
== END 2024-07-06 15:43 | disposition home or self-care (01) ==
LOC: NCHCN 15:42
PROVIDERS: Visit Provider Nurse Practitioner Family
DX: D64.9 Anemia, unspecified (principal); D69.6 Thrombocytopenia, unspecified
CPT/HCPCS: 85027; 86803; 87389; 82607; 82728; 82746; 83540; 83550; 84443; 85045